=== PATIENT | female | born 1940 | race Caucasian/White ===

== ENCOUNTER 2023-11-04 12:56 | Emergency (ER) | payer MEDICARE, MEDICAID ==
[~2023-11-04] VITALS: Ht 165.1 cm; Wt 64.7 kg
[2023-11-04] MEDS ORDERED: AMLO2.5T2 PO (13:43)
[2023-11-04] MEDS ORDERED: CELE-193 PO (13:43)
[2023-11-04 13:54] VITALS: BP 178/83; PULSE 73; RESP 14; TEMP 98.2; O2SAT 97
[2023-11-04] MEDS: celeCOXIB 100mg capsule PO SCH (13:59)
== END 2023-11-04 13:59 | disposition home or self-care (01) ==
LOC: ER 12:56
DX: M54.50 Low back pain, unspecified (principal); G89.29 Other chronic pain
CPT/HCPCS: 99283